=== PATIENT | female | born 1970 | race African-American/Black ===

== ENCOUNTER 2017-03-12 12:45 | Emergency (ER) | payer OTHER ==
[~2017-03-12] VITALS: Ht 165.1 cm; Wt 124.6 kg
[2017-03-12] MEDS ORDERED: LEVO-T150 MCG PO (13:58)
[2017-03-12] MEDS ORDERED: AUGMENTIN875 MG PO (17:51)
[2017-03-12 18:01] VITALS: BP 158/67
== END 2017-03-12 18:03 | disposition home or self-care (01) ==
LOC: EME 12:45
PROC: 0CJY8ZZ Inspection of Mouth and Throat, Via Natural or Artificial Opening Endoscopic (ICD-10-PCS; principal; 2017-03-12)
DX: T17.228A Food in pharynx causing other injury, initial encounter (principal); E03.9 Hypothyroidism, unspecified
CPT/HCPCS: 70490; 99281; 99284